=== PATIENT | male | born 1985 | race Caucasian/White ===

== ENCOUNTER 2025-02-23 09:09 | Emergency (ER) | payer OTHER ==
[2025-02-23] MEDS ORDERED: KETOROLAC TROMETHAMINE 30 MG/1 ML VIAL ONE (09:38)
[2025-02-23] MEDS ORDERED: ACETAMINOPHEN 500 MG TABLET (FP) ONE (09:38)
[2025-02-23] MEDS ORDERED: LIDOCAINE 5% TOPICAL PATCH ONE (09:38)
[2025-02-23] MEDS: LIDOCAINE 5% TOPICAL PATCH TP ONE (09:39)
[2025-02-23] MEDS: KETOROLAC TROMETHAMINE 30 MG/1 ML VIAL IM ONE (09:39)
[2025-02-23] MEDS: ACETAMINOPHEN 500 MG TABLET (FP) PO ONE (09:39)
[2025-02-23 12:30] VITALS: BP 135/89; PULSE 61; RESP 18; TEMP 97.7; BMI 29.6
[2025-02-23] MEDS ORDERED: LIDOCAINE PATCH REMOVAL MC ONE (22:00)
== END 2025-02-23 10:50 | disposition home or self-care (01) ==
LOC: FER 09:09
PROC: 3E0233Z Introduction of Anti-inflammatory into Muscle, Percutaneous Approach (ICD-10-PCS; principal; 2025-02-23)
DX: M54.50 Low back pain, unspecified (principal)
CPT/HCPCS: 81003; 96372; 99284-25